=== PATIENT | female | born 1990 | race Caucasian/White ===

== ENCOUNTER 2021-04-08 12:03 | Emergency (ER) | payer MEDICAID, SELFPAY ==
--- NOTE | ~2021-04-08 | XR_ITS ---
EXAMINATION: XR KNEE, LEFT CLINICAL INFORMATION: Knee pain COMPARISON: None TECHNIQUE: Four views of the left knee. FINDINGS: Bones and soft tissues are normal. No fracture or joint effusion. Alignment is anatomic. Joint spaces are well maintained. No abnormal soft tissue calcification. XR/XR knee LT 2V IMPRESSION: Normal left knee.
[2021-04-08 12:05] VITALS: BP 138/87; PULSE 75; RESP 18; TEMP 36.7; O2SAT 99; BMI 25.8
[2021-04-08] MEDS: Acetaminophen 325 MG TABLET 650 MG PO (12:14)
--- NOTE | 2021-04-08 13:25 | ED.LOWEXIN ---
HPI - Extremity Injury (Lower) General Chief Complaint: Extremity Injury, Lower Stated Complaint: l knee inj Time Seen by Provider: 04/08/21 12:31 Source: patient Mode of arrival: ambulatory Limitations: no limitations History of Present Illness HPI Narrative: 30-year-old female presenting to the ED with complaints of left knee pain that started yesterday. She reports that her daughter is currently in the Behavioral Health Pod of [facility] at this time for Behavioral issues and last night when they were in the waiting room of [facility] her child try to run therefore she grabbed her child and tried to restrain her and her child kicked her in her left knee felt like it went out she is unsure actually how it went but since then she has been having severe pain on the anterior and posterior aspect of the knee. She denies head injury or loss of consciousness or being on any blood thinners or any other injury complaints or concerns at this time. complaint: knee injury Onset (ago): day(s) (Since last night) Injury: Left: knee Type of Injury: unknown Place: other (While at [facility] with her child) Severity: moderate Relieving factors: nothing Exacerbating factors: weight bearing, movement and palpation Context: direct blow Associated symptoms: swelling and ambulatory Other symptoms: none Treatments prior to arrival: cold therapy and other (And Tylenol on mild symptomatic relief) Related Data Previous Rx's Medication Instructions Recorded ibuprofen 800 mg tablet 800 mg PO Q8H PRN #14 tab 04/08/21 lidocaine HCl 4 % topical cream 1 appl TOPICAL BID PRN #120 g 04/08/21 (Aspercreme (lidocaine HCl)) oxycodone-acetaminophen 5 mg-325 1 tab PO Q6H PRN #10 tab 04/08/21 mg tablet (Percocet) Allergies Allergy/AdvReac Type Severity Reaction Status Date / Time No Known Allergies Allergy Verified 04/08/21 13:26 Review of Systems Review of Systems: Constitutional : No Weight loss, No Fever, No Chills, No Night Sweats, No Fatigue, No Malaise ENT/Mouth : No Hearing loss, No Ear Pain, No Nasal Congestion, No Sinus Pain, No Hoarseness, No sore throat, No Rhinorrhea, No Swallowing Difficulty Eyes: No Eye Pain, No Swelling, No Redness, No Foreign Body, No Discharge, No Vision Changes Cardiovascular : No Chest Pain, No SOB, No Dyspnea on Exertion, No Orthopnea, No Edema, No Palpitations Respiratory : No Cough, No Sputum, No Wheezing, No Smoke Exposure, No Dyspnea Gastrointestinal : No Nausea, No Vomiting, No Diarrhea, No Constipation, No abdominal Pain, No Hematochezia, No Melena Genitourinary : no irregular bleeding, No Dysuria, No Urinary Frequency, No Hematuria, No Urinary Incontinence, No Urgency, No Flank Pain, No Urinary Flow Changes, No Hesitancy Musculoskeletal : Positive left knee joint pain, No Myalgias, No Joint Swelling Skin : No Skin Lesions, No rash Neuro : No Weakness, No Numbness, No Paresthesias, No Loss of Consciousness, No Dizziness, No Headache Psych : No Anxiety/Panic, No Depression, No SI/HI/AH/VH, No Social Issues, Heme/Lymph: No Bruising, No Bleeding,No Lymphadenopathy Endocrine : No Polyuria, No Polydipsia, No Temperature Intolerance Yes all other systems are reviewed and are negative [facility] Past Medical History Attestation statement: The following information was validated with the patient. Medical History No known health problems Social History Social History Advance Directives: No Advance Directives Information Provided: No Patient : No Physical Exam Vital Signs: Vital Signs: Last Vital Signs Temp 98.1 F 04/08/21 12:05 Pulse 75 04/08/21 12:05 Resp 18 04/08/21 12:05 BP 138/87 04/08/21 12:05 Pulse Ox 99 04/08/21 12:05 Body Mass Index 25.8 vital signs have been reviewed as normal and appeared to be correct. Blood pressure normal Heart rate normal. Respiration rate normal. Temperature normal. Oxygen saturation normal. Appearance: Alert. Oriented X3. No acute distress. Head: Normal external exam. Normocephalic. Atraumatic. Eyes: PERRLA. EOMI. Conjunctiva and sclera normal. Eyelids normal. ENT: Pharynx normal. Uvula midline. Moist mucous membranes. Neck: Normal inspection. Neck supple. FROM. CVS: Normal heart rate and rhythm. Respiratory: No respiratory distress. Painless inspiration. Skin: Skin warm and dry. Normal skin color. Normal skin turgor. No rashes/lesions/lacerations noted. Extremities: Patient with signs of patient to left knee diffusely on anterior and posterior aspect no point tenderness is noted. No obvious deformities are noted. Patient has full range of motion although she reports pain with full extension and keeps her knee and flexion aspect and reports it feels mildly better that way. No obvious ligamentous or tendon injury is noted. Otherwise all other extremities exhibit normal range of motion nd nontender. Neuro: Oriented X 3. No motor deficit. No sensory deficit. Reflexes normal. Normal steady gait. No focal neuro deficits noted. Vascular: + radial pulses/+ 2 distal pedal pulses/+2 dorsalis pedis b/l. Normal cap refill. No cyanosis noted to upper extremity nails and lower extremity toes nails. Course Course Course Narrative: 30-year-old female presenting to the ED with complaints of left knee pain that started yesterday. She reports that her daughter is currently in the Behavioral Health Pod of [facility] at this time for Behavioral issues and last night when they were in the waiting room of [facility] her child try to run therefore she grabbed her child and tried to restrain her and her child kicked her in her left knee felt like it went out she is unsure actually how it went but since then she has been having severe pain on the anterior and posterior aspect of the knee. She denies head injury or loss of consciousness or being on any blood thinners or any other injury complaints or concerns at this time. X-ray obtained and negative for any acute processes. We will place an Tian wrap treat symptomatic and instruct to follow up with Orthopedics in 2-3 weeks if symptoms persist and to return if any new or worsening symptoms to follow up with primary care provider. Patient understands agrees with this plan. MDM - Extremity Injury (Lower) Medical Records Attestation: I reviewed the patient's medical records. Imaging Data Left knee x-ray: Attestation: I personally reviewed and interpreted this imaging study as follows: Radiologist's impression: FINDINGS: Bones and soft tissues are normal. No fracture or joint effusion. Alignment is anatomic. Joint spaces are well maintained. No abnormal soft tissue calcification.? XR/XR knee LT 2V IMPRESSION: Normal left knee. Procedures Orthopedic Splinting/Casting Injury #1: Side: left Lower Extremity Injury Location: knee Lower Extremity Immobilizer: knee immobilizer Discharge Plan Discharge Clinical Impression: Left knee sprain Patient Disposition: Home, Self-Care Instructions: Knee Sprain (ED), Knee Immobilizer (ED) Prescriptions: New lidocaine HCl [Aspercreme (lidocaine HCl)] 4 % cream 1 appl topical BID PRN (Reason: pain) Qty: 120 RF: 0 ibuprofen 800 mg tablet 800 mg PO Q8H PRN (Reason: pain) Qty: 14 RF: 0 oxycodone-acetaminophen [Percocet] 5-325 mg tablet 1 tab PO Q6H PRN (Reason: pain) Qty: 10 RF: 0 Referrals: Dora Luz MD [Physician] - 2 weeks (Make an appointment if symptoms persist) Stand Alone Forms: Work/School Release Print Language: Maori
== END 2021-04-08 14:09 | disposition home or self-care (01) ==
PROVIDERS: Emergency Provider Emergency Medicine
DX: S83.92XA Sprain of unspecified site of left knee, initial encounter (principal); W50.0XXA Accidental hit or strike by another person, initial encounter; Y93.9 Activity, unspecified; Y92.238 Other place in hospital as the place of occurrence of the external cause; Y99.9 Unspecified external cause status
CPT/HCPCS: 73560; 99283

== ENCOUNTER 2021-05-05 11:36 | Emergency (ER) | payer MEDICAID, SELFPAY ==
[2021-05-05 11:57] VITALS: BP 110/76; PULSE 60; RESP 16; TEMP 36.8; O2SAT 98; BMI 22.8
[2021-05-05 12:54] LABS: COVID-19 Test Negative (Negative); IDNOW Serial# 9DD0AD1C
--- NOTE | 2021-05-05 13:13 | ED_ITS ---
HPI - Headache General Chief Complaint: Headache Stated Complaint: Covid symptoms Time Seen by Provider: 05/05/21 12:29 Source: patient and family Mode of arrival: ambulatory Limitations: no limitations History of Present Illness HPI Narrative: 31-year-old female here with complaints of headache for few days. Found out today that daughters COVID positive. Daughter is currently hospitalized at [facility] but the patient has been visiting her daily. Patient denies any fevers, cough, chills, vomiting, diarrhea. Related Data Previous Rx's Medication Instructions Recorded ibuprofen 800 mg tablet 800 mg PO Q8H PRN #14 tab 04/08/21 lidocaine HCl 4 % topical cream 1 appl TOPICAL BID PRN #120 g 04/08/21 (Aspercreme (lidocaine HCl)) oxycodone-acetaminophen 5 mg-325 1 tab PO Q6H PRN #10 tab 04/08/21 mg tablet (Percocet) Allergies Allergy/AdvReac Type Severity Reaction Status Date / Time No Known Allergies Allergy Verified 05/05/21 11:57 Review of Systems Review of Systems: Yes all other systems are reviewed and are negative Constitutional: Constitutional: Reports no additional constitutional complaints, Denies body ache(s), Denies chills, Denies fever(s), Reports headache(s) and Denies weakness Eyes: Eyes: Reports no additional eye complaints and Denies change in vision ENT: Reports system reviewed and no additional complaints, except as documented, Denies dizziness, Reports headache(s), Denies nasal congestion, Denies nasal discharge and Denies neck pain Cardiovascular: Cardiovascular: Reports no additional cardiovascular complaints, Denies chest pain, Denies leg edema and Denies dyspnea Respiratory: Respiratory: Reports no additional respiratory complaints, Denies cough and Denies dyspnea Gastrointestinal: Gastrointestinal: Reports no additional gastrointestinal complaints, Denies abdominal pain, Denies diarrhea, Denies nausea and Denies vomiting Genitourinary: Genitourinary: Reports no additional female genitourinary complaints and Denies urinary incontinence Musculoskeletal: Musculoskeletal: Reports no additional musculoskeletal complaints, Denies back pain, Denies arthralgias, Denies joint swelling, Denies neck pain, Denies numbness and Denies tingling Integumentary/Breasts: Skin/Breast: Reports system reviewed and no additional complaints, except as docu and Denies rash Neurologic: Reports system reviewed and no additional complaints, except as documented, Denies Abnormal speech present, Denies dizziness, Reports headache(s), Denies numbness, Denies tingling and Denies weakness PMFSH Past Medical History Attestation statement: The following information was validated with the patient. Source: old records reviewed and nursing notes reviewed Medical History No known health problems Social History Social History Advance Directives: No Patient : No Physical Exam Vital Signs: Vital Signs: Last Vital Signs Temp 98.2 F 05/05/21 11:57 Pulse 60 05/05/21 11:57 Resp 16 05/05/21 11:57 BP 110/76 05/05/21 11:57 Pulse Ox 98 05/05/21 11:57 Body Mass Index 22.8 Const: General: cooperative, healthy appearing, comfortable and no acute distress Orientation/consciousness: patient oriented x3 Limitations: no limitations HENMT: Head: Yes normal to inspection Ears: hearing grossly normal bilaterally and TM's normal bilaterally General nose exam: Normal external nose present Face and sinus: Yes normal facial exam Mouth: Normal oral and palatal mucosa present Throat: Yes posterior oropharynx normal, Yes tonsils normal and Yes uvula midline Eyes: General: appearance normal, both eyes and all related structures Pupils: Equal, round and reactive pupils present Neck: Neck: Yes normal visual inspection, Yes full ROM, Yes no lymphadenopathy and Yes no meningeal signs Chest: Chest palpation & inspection: normal inspection of the chest Resp: Effort & Inspection: normal respiratory effort Auscultation: clear to auscultation bilaterally Cardio: Rate: regular rate Rhythm: regular rhythm Peripheral pulses: Peripheral pulses 2+ throughout GI: Inspection: Yes normal to inspection Palpation (GI): Soft to palpation and nontender Auscultation: normal bowel sounds Back/Spine/Pelvis: Thoracic/Lumbar Spine: thoracic and lumbar spine normal to inspection Skin: General skin exam: no rashes or lesions noted Neuro: General: patient oriented x3, no meningeal signs, no focal motor deficits and normal sensation to monofilament Cranial nerves: Yes CN's II-XII intact bilaterally, Yes Equal, round and reactive pupils present, Yes Bilaterally intact EOM present, Yes Nystagmus not present and Yes Normal facial strength present Cognition (Neuro): normal cognition Speech: No Abnormal speech present Gait exam (Neuro): Normal gait present Motor exam (neuro): 5/5 motor strength present throughout Sensory Exam: Normal double simultaneous stimulation for sensation Extrem: General: Yes normal to inspection Course Course Course Narrative: 31-year-old female here with mild headache for few days. Found out today the daughter is COVID positive so came here today looking for a COVID test. Her exam is benign. Vitals are stable. COVID screen is negative. Likely viral. Reviewed worrisome signs and symptoms of when to return to the emergency department. Comfortable discharge home. MDM - Headache Medical Records Attestation: I reviewed the patient's medical records. Lab Data Attestation: I reviewed the patient's lab results. Labs: Lab Results 05/05/21 Range/Units 12:14 COVID-19 ([facility]) Negative (Negative) COVID-19 Clin Com See Note Discharge Plan Discharge Clinical Impression: Acute viral syndrome Patient Disposition: Home, Self-Care Instructions: Viral Syndrome (ED) Additional Instructions: Covid test is negative Motrin or Tylenol for pain or fever Increase fluids, rest Prescriptions: No Action lidocaine HCl [Aspercreme (lidocaine HCl)] 4 % cream 1 appl topical BID PRN (Reason: pain) Qty: 120 RF: 0 ibuprofen 800 mg tablet 800 mg PO Q8H PRN (Reason: pain) Qty: 14 RF: 0 oxycodone-acetaminophen [Percocet] 5-325 mg tablet 1 tab PO Q6H PRN (Reason: pain) Qty: 10 RF: 0 Referrals: Physician,Unknown J [Primary Care Provider] - 2 days Interventions: ED Discharge Assessment Last Done: 05/05/21 13:23 Discharge Date/Time: 05/05/21 13:26
== END 2021-05-05 13:26 | disposition home or self-care (01) ==
PROVIDERS: Emergency Provider Emergency Medicine Emergency Medical Services
DX: B34.9 Viral infection, unspecified (principal); R51.9 Headache, unspecified; Z79.899 Other long term (current) drug therapy; Z20.822 Contact with and (suspected) exposure to COVID-19
CPT/HCPCS: 36415; 87635; 99283

== ENCOUNTER → 2021-05-07 09:49 | Outpatient (BNVA) | payer MEDICAID, SELFPAY | PROVIDERS: PCP Nurse Practitioner Family; Visit Provider Physician Assistant | DX: S83.92XA Sprain of unspecified site of left knee, initial encounter (principal) | CPT/HCPCS: 99202 ==

== ENCOUNTER 2021-06-08 07:07 | Outpatient (REF) | payer MEDICAID, SELFPAY ==
--- NOTE | ~2021-06-08 | XR_ITS ---
EXAMINATION: XR SHOULDER, BILATERAL CLINICAL INFORMATION: Pain in the shoulder. COMPARISON: None TECHNIQUE: 4 views of the right shoulder, 4 views of the left shoulder. FINDINGS: Right Shoulder: The bones, joints and soft tissues are normal. Left Shoulder: The bones, joints and soft tissues are normal. XR/XR shoulder RT min 2V IMPRESSION: Normal x-ray series of the right shoulder and the left shoulder.
--- NOTE | ~2021-06-08 | XR_ITS ---
EXAMINATION: XR SHOULDER, BILATERAL CLINICAL INFORMATION: Pain in the shoulder. COMPARISON: None TECHNIQUE: 4 views of the right shoulder, 4 views of the left shoulder. FINDINGS: Right Shoulder: The bones, joints and soft tissues are normal. Left Shoulder: The bones, joints and soft tissues are normal. XR/XR shoulder LT min 2V IMPRESSION: Normal x-ray series of the right shoulder and the left shoulder.
== END 2021-06-08 07:08 | disposition home or self-care (01) ==
LOC: HO.HOSX 07:07
PROVIDERS: Visit Provider Physician Assistant
DX: M25.512 Pain in left shoulder (principal); M25.511 Pain in right shoulder; G89.29 Other chronic pain
CPT/HCPCS: 73030; 99212

== ENCOUNTER 2022-05-31 16:43 | Emergency (ER) | payer MEDICAID, SELFPAY ==
--- NOTE | ~2022-05-31 | XR_ITS ---
EXAMINATION: XR CHEST CLINICAL INFORMATION: Chest pain COMPARISON: None TECHNIQUE: Frontal view of the chest was obtained. FINDINGS: No significant abnormality is noted involving the heart, lungs, mediastinum, bony thorax or soft tissues. XR/XR chest 1V IMPRESSION: Unremarkable examination.
--- NOTE | ~2022-05-31 | CT_ITS ---
EXAMINATION: CT SOFT TISSUE NECK WITHOUT CONTRAST CLINICAL INFORMATION: Left-sided neck pain. COMPARISON: None TECHNIQUE: Helical imaging was performed in the axial plane with generation of coronal and sagittal reformatted images. This CT examination was performed using dose optimization techniques as appropriate, variously including the following: *Automated exposure control *Adjustment of mA and/or kV according to patient size (this includes techniques or standardized protocols for targeted exams where dose is matched to indication/reason for exam; i.e. extremities or head) *Use of iterative reconstruction technique DLP: 380 mGy-cm FINDINGS: No mass or significant lymphadenopathy. Findings at the neck are normal with no inflammation or fluid collection. Paranasal sinuses and mastoid air cells normally aerated. The nasopharynx, pharynx and hypopharynx structures are normal. Orbital globes and retrobulbar structures and partially visualized intracranial structures are normal. Lung apices normally aerated. Superior mediastinum normal. No osseous abnormality. Small piece of metallic jewelry present over the right superior orbit soft tissues. CT/CT soft tissue neck wo IV con IMPRESSION: Normal CT soft tissue neck.
[2022-05-31 17:36] VITALS: BP 121/81; PULSE 96; RESP 24; TEMP 36.2; O2SAT 100; BMI 22.0
--- NOTE | 2022-05-31 17:43 | ECG_ITS ---
Test Reason : CP Blood Pressure : / mmHG Vent. Rate : 073 BPM Atrial Rate : 073 BPM P-R Int : 132 ms QRS Dur : 096 ms QT Int : 394 ms P-R-T Axes : 068 101 033 degrees QTc Int : 434 ms Normal sinus rhythm with sinus arrhythmia Possible Left atrial enlargement Rightward axis Incomplete right bundle branch block Borderline ECG No previous ECGs available Referred By: Generic ED Physician Electronically Signed By:BHAVNA LOCKETT MD
[2022-05-31 18:01] LABS: MANUAL DIFF FLAG NO
[2022-05-31 18:19] LABS: Anion Gap 17 (12-20); Blood Urea Nitrogen 14 mg/dL (9-16); Calcium 9.9 mg/dL (8.4-10.2); Carbon Dioxide 20 mmol/L (22-29); Chloride 103 mmol/L (96-108); Creatinine Clr Calc Pharmacy 100.2; Estimated Glomerular Filt Rate > 60; Glucose Random 88 mg/dL (60-115); Potassium 3.9 mmol/L (3.3-5.1); Sodium 136 mmol/L (135-145)
[2022-05-31 18:26] LABS: Basophils Absolute Auto 0.1 X10*3/uL (0.0-0.2); Basophils Percent Auto 0.7 % (0-2); Eosinophils Percent Auto 0.5 % (0-4); Hematocrit 40.3 % (37.0-47.0); Hemoglobin 14.4 g/dl (12.0-16.0); Imm Gran Pct Auto 1.2 % (0.0-0.4); Lymphocytes Absolute Auto 2.1 X10*3/uL (1.2-4.9); Lymphocytes Percent Auto 24.7 % (20-40); Mean Corpuscular HGB Conc 35.7 g/dl (31.0-35.0); Mean Corpuscular Hemoglobin 30.8 pg (27.0-33.0); Mean Corpuscular Volume 86.3 fL (80.0-98.0); Mean Platelet Volume 10.1 fL (9.4-12.3); Monocytes Absolute Auto 0.7 X10*3/uL (0.1-1.2); Neutrophils Absolute Auto 5.5 x10*3/uL (2.0-8.3); Neutrophils Percent Auto 64.9 % (45-73); Platelet Count 233 X10*3/uL (160-400); Red Blood Count 4.67 X10*6/uL (4.20-5.50); Red Cell Distribution Width 12.1 % (11.0-16.0); White Blood Count 8.4 X10*3/uL (4.8-10.8)
[2022-05-31 18:31] LABS: Troponin-I High Sensitivity < 3.5 ng/L (<3.5-17.0)
[2022-05-31 19:21] VITALS: BP 110/69; PULSE 58; RESP 20; TEMP 36.4; O2SAT 100
--- NOTE | 2022-05-31 20:59 | ED.CHESTPAIN ---
HPI - Chest Pain General Chief Complaint: Chest Pain Stated Complaint: Pressure from ear to neck/Weakness Time Seen by Provider: 05/31/22 20:51 Source: patient Mode of arrival: ambulatory Limitations: no limitations History of Present Illness HPI narrative: Patient comes to the emergency room complaining of left-sided neck pain that has been going on for several months, patient states that she has been seen by her primary care physician, an ultrasound was done but the pain has been present and causing pressure sensation. Patient denies any shortness of breath or trouble swallowing. Patient complaining of anxiety about her condition, denies any fever chills. Patient states that the pain of her left side of the neck radiates towards her chest. At this time, patient has no chest pain or shortness of breath. Patient admits to using cocaine yesterday. Related Data Previous Rx's Medication Instructions Recorded ibuprofen 800 mg tablet 800 mg PO Q8H PRN pain #14 tabs 04/08/21 lidocaine HCl 4 % topical cream 1 appl topical BID PRN pain #120 04/08/21 (Aspercreme (lidocaine HCl)) grams oxycodone-acetaminophen 5 mg-325 1 tab PO Q6H PRN pain #10 tabs 04/08/21 mg tablet (Percocet) Allergies Allergy/AdvReac Type Severity Reaction Status Date / Time No Known Allergies Allergy Verified 06/08/21 14:15 Review of Systems Review of Systems: Constitutional : No Weight loss, No Fever, No Chills, No Night Sweats, No Fatigue, No Malaise ENT/Mouth : No Hearing loss no nasal congestion, no hoarseness, no sore throat, no difficulty swelling, complaining of left-sided neck pain radiating from the ear towards the left side of the neck towards the chest, complaining of pressure-like sensation. Eyes: No Eye Pain, No Swelling, No Redness, No Foreign Body, No Discharge, No Vision Changes Cardiovascular : No Chest Pain, No SOB, No Dyspnea on Exertion, No Orthopnea, No Edema, No Palpitations Respiratory : No Cough, No Sputum, No Wheezing, No Smoke Exposure, No Dyspnea Gastrointestinal : No Nausea, No Vomiting, No Diarrhea, No Constipation, No abdominal Pain, No Hematochezia, No Melena Genitourinary : no irregular bleeding, No Dysuria, No Urinary Frequency, No Hematuria, No Urinary Incontinence, No Urgency, No Flank Pain, No Urinary Flow Changes, No Hesitancy Musculoskeletal : No joint pain, No Myalgias, No Joint Swelling Skin : No Skin Lesions, No rash Neuro : No Weakness, No Numbness, No Paresthesias, No Loss of Consciousness, No Dizziness, No Headache Psych : No Anxiety/Panic, No Depression, No SI/HI/AH/VH, No Social Issues, Heme/Lymph: No Bruising, No Bleeding,No Lymphadenopathy Endocrine : No Polyuria, No Polydipsia, No Temperature Intolerance [facility] Past Medical History Medical History (Updated 05/31/22 @ 22:56 by Yulisa Flynn MD) Chronic periscapular pain, bilateral No known health problems Radiculopathy with lower extremity symptoms Substance abuse Social History Social History Smoked in Last 30 Days: Yes Use of substances other than those prescribed or required for medical reasons: Yes Substance Use Type: Crack/Cocaine and Marijuana Substance Use Frequency: Occasionally Last Used Substance: Days (ago) Any prior treatment program specific to substance use: No Advance Directives: No Advance Directives Information Provided: No Patient : No Current occupational status: unemployed Current occupation: rt handed Physical Exam Vital Signs: Vital Signs: Last Vital Signs Temp 97.6 F 05/31/22 19:21 Pulse 80 05/31/22 21:38 Resp 20 05/31/22 19:21 BP 130/86 05/31/22 21:38 Pulse Ox 100 05/31/22 19:21 O2 Del Method 05/31/22 19:21 BMI result Body Mass Index 22.0 Const: Other: Appearance: Alert. Oriented X3. No acute distress. Eyes: Pupils equal, round and reactive to light. ENT: Pharynx normal. There are no palpable lymph nodes, no palpable or visualized swelling on the left side of the neck Neck: Normal inspection. Neck supple. No lymph nodes noted. No crepitus CVS: Normal heart rate and rhythm. Pulses normal. Normal S1 and S2 Respiratory: No respiratory distress. Breath sounds normal. No Wheezing. No rales Abdomen: Soft and nontender. No rigidity. No distention. Skin: Skin warm and dry. Normal skin color. Normal skin turgor. Extremities: No lower extremity edema. No Lacerations. No Rash Neuro: Oriented X 3. No motor deficit. No sensory deficit. Moving all extremities. No slurred speech. CN 2 through 12 grossly intact Psych: calm, cooperative, normal affect Course Course Course Narrative: I discussed the physical exam with the patient, there were no palpable or visualized swelling or lymph nodes. Patient is admitted that there is something on the left side of her neck. I offered her CT scan. Patient agrees with plan. all Of patient's labs are at baseline I discussed the CT scan with the patient, no acute findings. Patient has history of POTS, patient's blood pressure remained stable. Medical Decision Making Medical Decision Making Differential Diagnoses: Differential diagnosis (Anxiety, chronic lymphadenitis, abscess) Lab Attestation: I reviewed the patient's lab results. (No acute abnormalities) Independent interpretation of EKG, rhythm strip, radiology study: Independent interp EKG,rhythm strip, radiology study I performed an independent interpretation of the: EKG My interpretation is sinus rhythm, heart rate 73, no ST segment depression or elevation, nonspecific T-wave inversion in lead 3, QTC 434 Discussion of test interpretation with radiology: Discussion of test interpretation with radiology (I visualized the CT scan, my interpretation is no acute findings.) CT report: FINDINGS: No mass or significant lymphadenopathy. Findings at the neck are normal with no inflammation or fluid collection. Paranasal sinuses and mastoid air cells normally aerated. The nasopharynx, pharynx and hypopharynx structures are normal. Orbital globes and retrobulbar structures and partially visualized intracranial structures are normal. Lung apices normally aerated. Superior mediastinum normal. No osseous abnormality. Small piece of metallic jewelry present over the right superior orbit soft tissues. CT/CT soft tissue neck wo IV con IMPRESSION: Normal CT soft tissue neck. Prescription medication was considered but ultimately not given after discussion with patient/family. (e.g., pain medication, antiviral, antibiotic): Prescriptions considered but not given I considered prescription management with: Pain Medication (Ibuprofen or Tylenol were considered. However, patient has chronic symptoms on the left side of the neck, already addressed by the primary care physician, CT scan negative, there is likely anxiety component) Chronic conditions affecting care (e.g., diabetes, HTN): Chronic conditions affecting care (e.g., diabetes, HTN) (Kyle syndrome, patient is at baseline) Discharge Plan Discharge Clinical Impression: Neck pain on left side Patient Disposition: Home, Self-Care Instructions: Chronic Neck Pain (DC) Additional Instructions: Please follow-up with your primary care physician tomorrow. If you have any worsening or new symptoms, please return to the emergency room or call 911 Prescriptions: No Action lidocaine HCl [Aspercreme (lidocaine HCl)] 4 % cream 1 appl topical BID PRN (Reason: pain) Qty: 120 0RF ibuprofen 800 mg tablet 800 mg PO Q8H PRN (Reason: pain) Qty: 14 0RF oxycodone-acetaminophen [Percocet] 5-325 mg tablet 1 tab PO Q6H PRN (Reason: pain) Qty: 10 0RF
[2022-05-31 21:38] VITALS: BP 105/67; BP 120/79; BP 130/86; PULSE 46; PULSE 59; PULSE 80
--- NOTE | 2022-05-31 23:08 | PC.NURSE ---
Discharge instructions reviewed with pt. Pt verbalizes understanding.
== END 2022-05-31 23:08 | disposition home or self-care (01) ==
PROVIDERS: Emergency Provider Emergency Medicine
DX: R07.89 Other chest pain (principal); M54.2 Cervicalgia; F14.10 Cocaine abuse, uncomplicated; F12.10 Cannabis abuse, uncomplicated; Z79.899 Other long term (current) drug therapy
CPT/HCPCS: 36415; 70490; 71045; 80048; 84484; 85025; 93005; 99284; 99285

== ENCOUNTER 2022-06-06 17:19 | Emergency (ER) | payer MEDICAID, SELFPAY ==
--- NOTE | ~2022-06-06 | XR_ITS ---
EXAMINATION: XR CHEST, 2 VIEWS CLINICAL INFORMATION: chest pain/abd pain COMPARISON: 05/31/2022 TECHNIQUE: PA and lateral views of the chest were obtained. FINDINGS: Lungs are clear. No consolidation, pneumothorax, or pleural effusion. Cardiac and mediastinal contours are normal. Pulmonary vasculature is unremarkable. Trachea is midline. Osseous structures are unremarkable. XR/XR chest 2V IMPRESSION: Normal chest radiographs.
[2022-06-06 18:09] VITALS: BP 141/90; PULSE 72; RESP 18; TEMP 36.5; O2SAT 100; BMI 22.7
--- NOTE | 2022-06-06 18:09 | ED.GENADULT ---
HPI - General Adult General Chief complaint: General Medical <HELEN Arreola - Last Filed: 06/06/22 18:14> Stated complaint: Neck Pain/ Multiple complaints <HELEN Arreola - Last Filed: 06/06/22 18:14> Time Seen by Provider: 06/06/22 19:57 <HELEN Arreola - Last Filed: 06/06/22 18:14> Source: patient <Cesar Kate MD - Last Filed: 06/06/22 22:28> Mode of arrival: ambulatory <Cesar Kate MD - Last Filed: 06/06/22 22:28> Limitations: no limitations <Cesar Kate MD - Last Filed: 06/06/22 22:28> History of Present Illness HPI narrative: 32yoF presenting ot the ED multiple complaints headaches, eye pain, left sided ear pain, left neck pain, left chest pain radiating to her left arm, left abdominal pain and multiple other complaints.? Reports that she was seen by provider yesterday and everything was negative. Patient does have a history of anxiety and insomnia was seen here on 05/31 lab work was normal complaining of mostly muscular pain upper back poor sleep tearful crying because of anxiety <Cesar Kate MD - Last Filed: 06/06/22 22:28> Related Data Home medications: Previous Rx's Medication Instructions Recorded ibuprofen 800 mg tablet 800 mg PO Q8H PRN pain #14 tabs 04/08/21 lidocaine HCl 4 % topical cream 1 appl topical BID PRN pain #120 04/08/21 (Aspercreme (lidocaine HCl)) grams oxycodone-acetaminophen 5 mg-325 1 tab PO Q6H PRN pain #10 tabs 04/08/21 mg tablet (Percocet) lorazepam 1 mg tablet (Ativan) 1 mg PO BEDTIME PRN anxiety #14 06/06/22 tabs tramadol 50 mg tablet 50 mg PO Q6H PRN pain #20 tabs 06/06/22 <HELEN Arreola - Last Filed: 06/06/22 18:14> Allergies/adverse reactions: Allergies Allergy/AdvReac Type Severity Reaction Status Date / Time No Known Allergies Allergy Verified 06/08/21 14:15 <HELEN Arreola - Last Filed: 06/06/22 18:14> Review of Systems Review of Systems: Yes all other systems are reviewed and are negative <Cesar Kate MD - Last Filed: 06/06/22 22:28> [facility] Past Medical History Medical History: Medical History Chronic periscapular pain, bilateral No known health problems Radiculopathy with lower extremity symptoms Substance abuse <HELEN Arreola - Last Filed: 06/06/22 18:14> Social History Social History: Social History Substance Use Type: Crack/Cocaine and Marijuana Advance Directives: No Advance Directives Information Provided: No Current occupational status: unemployed Current occupation: rt handed <HELEN Arreola - Last Filed: 06/06/22 18:14> Physical Exam ED Vital Signs: Vital Signs - 24 hr 06/06/22 18:09 Temperature 97.7 F Pulse Rate 72 Respiratory Rate 18 Blood Pressure 141/90 H Pulse Oximetry 100 Oxygen Delivery Method Room Air BMI result Body Mass Index 22.7 <HELEN Arreola - Last Filed: 06/06/22 18:14> Vital Signs - 24 hr 06/06/22 18:09 Temperature 97.7 F Pulse Rate 72 Respiratory Rate 18 Blood Pressure 141/90 H Pulse Oximetry 100 Oxygen Delivery Method Room Air BMI result Body Mass Index 22.7 <Cesar Kate MD - Last Filed: 06/06/22 22:28> Appearance: Alert. Oriented X3. No acute distress. anxious Eyes: PERRLA, No Nystagmus ENT: Pharynx normal. Oral Mucosa moist Neck: Normal inspection. Neck supple. Diffuse tenderness of bilateral neck muscles no lymphadenopathy CVS: Normal heart rate and rhythm. Pulses normal. Respiratory: No respiratory distress. Equal air entry bilateral, no wheezing/rales/rhonchi Abdomen: Soft and nontender. Bowel sounds are present, no mass palpable, no CVA tenderness Skin: Skin warm and dry. Normal skin color. Normal skin turgor. back: Diffuse tenderness bilateral rhomboids area with trigger points Extremities: No lower extremity edema. No calf tenderness Neuro: Oriented X 3. No motor deficit. No sensory deficit.No cerebellar signs , cranial nerves II-XII intact <Cesar Kate MD - Last Filed: 06/06/22 22:28> Course Course Course Narrative: [id number]:10pm - 32yoF presenting ot the ED c multiple complaints headaches, eye pain, left sided ear pain, left neck pain, left chest pain radiating to her left arm, left abdominal pain and multiple other complaints. Reports that she was seen by provider yesterday and everything was negative. Plan: Labs, CXR, EKG ordered at this time. Patient is stable. Vital signs are stable. Patient will be sent back to the waiting room for further evaluation treatment to the main ER. <HELEN Arreola - Last Filed: 06/06/22 18:14> Medications Administered Discontinued Medications Generic Name Dose Route Start Last Admin Trade Name Freq PRN Reason Stop Dose Admin Tramadol HCl 50 mg 06/06/22 20:16 06/06/22 20:27 Tramadol Hcl 50 Mg Tablet PO 06/06/22 20:17 50 mg ONCE ONE Administration <HELEN Arreola - Last Filed: 06/06/22 18:14> Medications Administered Discontinued Medications Generic Name Dose Route Start Last Admin Trade Name Freq PRN Reason Stop Dose Admin Tramadol HCl 50 mg 06/06/22 20:16 06/06/22 20:27 Tramadol Hcl 50 Mg Tablet PO 06/06/22 20:17 50 mg ONCE ONE Administration <Cesar Kate MD - Last Filed: 06/06/22 22:28> Medical Decision Making Medical Decision Making [facility] Narrative: Patient's symptoms of fibromyalgia anxiety multiple complaints recently had a CT scan was of the neck negative lab workup is negative Monospot is negative patient was advised to follow with PCP and 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 <Cesar Kate MD - Last Filed: 06/06/22 22:28> Result Diagrams: : 06/06/22 18:26 06/06/22 18:26 <HELEN Arreola - Last Filed: 06/06/22 18:14> Labs: Lab Results 06/06/22 06/06/22 06/06/22 Range/Units 18:26 18:26 18:26 WBC 8.4 (4.8-10.8) X10*3/uL RBC 4.13 L (4.20-5.50) X10*6/uL Hgb 13.0 (12.0-16.0) g/dl Hct 37.3 (37.0-47.0) % MCV 90.3 (80.0-98.0) fL MCH 31.5 (27.0-33.0) pg MCHC 34.9 (31.0-35.0) g/dl RDW 12.5 (11.0-16.0) % Plt Count 175 (160-400) X10*3/uL MPV 10.2 (9.4-12.3) fL Immature Gran % (Auto) 0.2 (0.0-0.4) % Neut % (Auto) 65.2 (45-73) % Lymph % (Auto) 26.5 (20-40) % [place] % (Auto) 6.4 (2-11) % Eos % (Auto) 1.0 (0-4) % Baso % (Auto) 0.7 (0-2) % Lymph # (Auto) 2.2 (1.2-4.9) X10*3/uL [place] # (Auto) 0.5 (0.1-1.2) X10*3/uL Eos # (Auto) 0.1 (0.0-0.4) X10*3/uL Baso # (Auto) 0.1 (0.0-0.2) X10*3/uL Abs Immat Gran (auto) 0.02 (0.00-0.03) X10*3/uL Absolute Neuts (auto) 5.5 (2.0-8.3) x10*3/uL Absolute Nucleated RBC 0.000 (0.0-0.012) X10*3/uL Nucleated RBC % (auto) 0.0 (0.0-0.2) /100WBC PT 13.9 H (10.0-13.1) SEC INR 1.2 H (0.9-1.1) Sodium 137 (135-145) mmol/L Potassium 3.7 (3.3-5.1) mmol/L Chloride 107 (96-108) mmol/L Carbon Dioxide 23 (22-29) mmol/L Anion Gap 11 L (12-20) BUN 8 L (9-16) mg/dL Creatinine 0.70 (0.5-1.4) mg/dL Estim Creat Clear Calc 113.2 Estimated GFR > 60 Random Glucose 83 (60-115) mg/dL Calcium 9.1 D (8.4-10.2) mg/dL Magnesium 2.0 (1.6-2.6) mg/dL Total Bilirubin 1.1 H (0.0-1.0) mg/dL AST 16 (5-31) U/L ALT 8 (0-31) U/L Alkaline Phosphatase 52 (39-117) U/L Troponin I High Sens (<3.5-17.0) ng/L Total Protein 6.5 (6.5-8.0) g/dL Albumin 4.4 (3.5-5.0) g/dL Lipase 21 (8-78) U/L Monoscreen (Negative) Influenza Type A (PCR) (Negative) Influenza Type B (PCR) (Negative) RSV RNA Qual (PCR) (Negative) SARS-CoV-2 RNA (RT-PCR) (Negative) 06/06/22 06/06/22 06/06/22 Range/Units 18:26 18:26 18:26 WBC (4.8-10.8) X10*3/uL RBC (4.20-5.50) X10*6/uL Hgb (12.0-16.0) g/dl Hct (37.0-47.0) % MCV (80.0-98.0) fL MCH (27.0-33.0) pg MCHC (31.0-35.0) g/dl RDW (11.0-16.0) % Plt Count (160-400) X10*3/uL MPV (9.4-12.3) fL Immature Gran % (Auto) (0.0-0.4) % Neut % (Auto) (45-73) % Lymph % (Auto) (20-40) % [place] % (Auto) (2-11) % Eos % (Auto) (0-4) % Baso % (Auto) (0-2) % Lymph # (Auto) (1.2-4.9) X10*3/uL [place] # (Auto) (0.1-1.2) X10*3/uL Eos # (Auto) (0.0-0.4) X10*3/uL Baso # (Auto) (0.0-0.2) X10*3/uL Abs Immat Gran (auto) (0.00-0.03) X10*3/uL Absolute Neuts (auto) (2.0-8.3) x10*3/uL Absolute Nucleated RBC (0.0-0.012) X10*3/uL Nucleated RBC % (auto) (0.0-0.2) /100WBC PT (10.0-13.1) SEC INR (0.9-1.1) Sodium (135-145) mmol/L Potassium (3.3-5.1) mmol/L Chloride (96-108) mmol/L Carbon Dioxide (22-29) mmol/L Anion Gap (12-20) BUN (9-16) mg/dL Creatinine (0.5-1.4) mg/dL Estim Creat Clear Calc Estimated GFR Random Glucose (60-115) mg/dL Calcium (8.4-10.2) mg/dL Magnesium (1.6-2.6) mg/dL Total Bilirubin (0.0-1.0) mg/dL AST (5-31) U/L ALT (0-31) U/L Alkaline Phosphatase (39-117) U/L Troponin I High Sens < 3.5 (<3.5-17.0) ng/L Total Protein (6.5-8.0) g/dL Albumin (3.5-5.0) g/dL Lipase (8-78) U/L Monoscreen Negative (Negative) Influenza Type A (PCR) NEGATIVE (Negative) Influenza Type B (PCR) NEGATIVE (Negative) RSV RNA Qual (PCR) NEGATIVE (Negative) SARS-CoV-2 RNA (RT-PCR) NEGATIVE (Negative) <HELEN Arreola - Last Filed: 06/06/22 18:14> Lab Results 06/06/22 06/06/22 06/06/22 Range/Units 18:26 18:26 18:26 WBC 8.4 (4.8-10.8) X10*3/uL RBC 4.13 L (4.20-5.50) X10*6/uL Hgb 13.0 (12.0-16.0) g/dl Hct 37.3 (37.0-47.0) % MCV 90.3 (80.0-98.0) fL MCH 31.5 (27.0-33.0) pg MCHC 34.9 (31.0-35.0) g/dl RDW 12.5 (11.0-16.0) % Plt Count 175 (160-400) X10*3/uL MPV 10.2 (9.4-12.3) fL Immature Gran % (Auto) 0.2 (0.0-0.4) % Neut % (Auto) 65.2 (45-73) % Lymph % (Auto) 26.5 (20-40) % [place] % (Auto) 6.4 (2-11) % Eos % (Auto) 1.0 (0-4) % Baso % (Auto) 0.7 (0-2) % Lymph # (Auto) 2.2 (1.2-4.9) X10*3/uL [place] # (Auto) 0.5 (0.1-1.2) X10*3/uL Eos # (Auto) 0.1 (0.0-0.4) X10*3/uL Baso # (Auto) 0.1 (0.0-0.2) X10*3/uL Abs Immat Gran (auto) 0.02 (0.00-0.03) X10*3/uL Absolute Neuts (auto) 5.5 (2.0-8.3) x10*3/uL Absolute Nucleated RBC 0.000 (0.0-0.012) X10*3/uL Nucleated RBC % (auto) 0.0 (0.0-0.2) /100WBC PT 13.9 H (10.0-13.1) SEC INR 1.2 H (0.9-1.1) Sodium 137 (135-145) mmol/L Potassium 3.7 (3.3-5.1) mmol/L Chloride 107 (96-108) mmol/L Carbon Dioxide 23 (22-29) mmol/L Anion Gap 11 L (12-20) BUN 8 L (9-16) mg/dL Creatinine 0.70 (0.5-1.4) mg/dL Estim Creat Clear Calc 113.2 Estimated GFR > 60 Random Glucose 83 (60-115) mg/dL Calcium 9.1 D (8.4-10.2) mg/dL Magnesium 2.0 (1.6-2.6) mg/dL Total Bilirubin 1.1 H (0.0-1.0) mg/dL AST 16 (5-31) U/L ALT 8 (0-31) U/L Alkaline Phosphatase 52 (39-117) U/L Troponin I High Sens (<3.5-17.0) ng/L Total Protein 6.5 (6.5-8.0) g/dL Albumin 4.4 (3.5-5.0) g/dL Lipase 21 (8-78) U/L Monoscreen (Negative) Influenza Type A (PCR) (Negative) Influenza Type B (PCR) (Negative) RSV RNA Qual (PCR) (Negative) SARS-CoV-2 RNA (RT-PCR) (Negative) 06/06/22 06/06/22 06/06/22 Range/Units 18:26 18:26 18:26 WBC (4.8-10.8) X10*3/uL RBC (4.20-5.50) X10*6/uL Hgb (12.0-16.0) g/dl Hct (37.0-47.0) % MCV (80.0-98.0) fL MCH (27.0-33.0) pg MCHC (31.0-35.0) g/dl RDW (11.0-16.0) % Plt Count (160-400) X10*3/uL MPV (9.4-12.3) fL Immature Gran % (Auto) (0.0-0.4) % Neut % (Auto) (45-73) % Lymph % (Auto) (20-40) % [place] % (Auto) (2-11) % Eos % (Auto) (0-4) % Baso % (Auto) (0-2) % Lymph # (Auto) (1.2-4.9) X10*3/uL [place] # (Auto) (0.1-1.2) X10*3/uL Eos # (Auto) (0.0-0.4) X10*3/uL Baso # (Auto) (0.0-0.2) X10*3/uL Abs Immat Gran (auto) (0.00-0.03) X10*3/uL Absolute Neuts (auto) (2.0-8.3) x10*3/uL Absolute Nucleated RBC (0.0-0.012) X10*3/uL Nucleated RBC % (auto) (0.0-0.2) /100WBC PT (10.0-13.1) SEC INR (0.9-1.1) Sodium (135-145) mmol/L Potassium (3.3-5.1) mmol/L Chloride (96-108) mmol/L Carbon Dioxide (22-29) mmol/L Anion Gap (12-20) BUN (9-16) mg/dL Creatinine (0.5-1.4) mg/dL Estim Creat Clear Calc Estimated GFR Random Glucose (60-115) mg/dL Calcium (8.4-10.2) mg/dL Magnesium (1.6-2.6) mg/dL Total Bilirubin (0.0-1.0) mg/dL AST (5-31) U/L ALT (0-31) U/L Alkaline Phosphatase (39-117) U/L Troponin I High Sens < 3.5 (<3.5-17.0) ng/L Total Protein (6.5-8.0) g/dL Albumin (3.5-5.0) g/dL Lipase (8-78) U/L Monoscreen Negative (Negative) Influenza Type A (PCR) NEGATIVE (Negative) Influenza Type B (PCR) NEGATIVE (Negative) RSV RNA Qual (PCR) NEGATIVE (Negative) SARS-CoV-2 RNA (RT-PCR) NEGATIVE (Negative) <Cesar Kate MD - Last Filed: 06/06/22 22:28> Discharge Plan Discharge Clinical Impression: Fibromyalgia, Anxiety <HELEN Arreola - Last Filed: 06/06/22 18:14> Patient Disposition: Home, Self-Care <HELEN Arreola - Last Filed: 06/06/22 18:14> Instructions: Fibromyalgia (ED), Anxiety (ED) <HELEN Arreola - Last Filed: 06/06/22 18:14> Additional Instructions: Take medication as prescribed and follow with PCP <HELEN Arreola - Last Filed: 06/06/22 18:14> Prescriptions: New lorazepam [Ativan] 1 mg tablet 1 mg PO BEDTIME PRN (Reason: anxiety) Qty: 14 0RF tramadol 50 mg tablet 50 mg PO Q6H PRN (Reason: pain) Qty: 20 0RF No Action lidocaine HCl [Aspercreme (lidocaine HCl)] 4 % cream 1 appl topical BID PRN (Reason: pain) Qty: 120 0RF ibuprofen 800 mg tablet 800 mg PO Q8H PRN (Reason: pain) Qty: 14 0RF oxycodone-acetaminophen [Percocet] 5-325 mg tablet 1 tab PO Q6H PRN (Reason: pain) Qty: 10 0RF <HELEN Arreola - Last Filed: 06/06/22 18:14> Interventions: ED Discharge Assessment Last Done: 06/06/22 20:37 <HELEN Arreola - Last Filed: 06/06/22 18:14> Discharge Date/Time: 06/06/22 20:37 <HELEN Arreola - Last Filed: 06/06/22 18:14>
--- NOTE | 2022-06-06 18:10 | ECG_ITS ---
Test Reason : ABDOMINAL PAIN Blood Pressure : / mmHG Vent. Rate : 062 BPM Atrial Rate : 062 BPM P-R Int : 142 ms QRS Dur : 094 ms QT Int : 416 ms P-R-T Axes : 055 089 020 degrees QTc Int : 422 ms Normal sinus rhythm Incomplete right bundle branch block Borderline ECG When compared with ECG of 31-MAY-2022 17:45, No significant change was found Referred By: Irina Dodd Electronically Signed By:RONALDO PRIETO
[2022-06-06 18:35] LABS: MANUAL DIFF FLAG NO
[2022-06-06 18:38] LABS: Basophils Absolute Auto 0.1 X10*3/uL (0.0-0.2); Basophils Percent Auto 0.7 % (0-2); Eosinophils Absolute Auto 0.1 X10*3/uL (0.0-0.4); Hematocrit 37.3 % (37.0-47.0); Imm Gran Abs Auto 0.02 X10*3/uL (0.00-0.03); Imm Gran Pct Auto 0.2 % (0.0-0.4); Lymphocytes Absolute Auto 2.2 X10*3/uL (1.2-4.9); Lymphocytes Percent Auto 26.5 % (20-40); Mean Corpuscular HGB Conc 34.9 g/dl (31.0-35.0); Mean Corpuscular Hemoglobin 31.5 pg (27.0-33.0); Mean Corpuscular Volume 90.3 fL (80.0-98.0); Mean Platelet Volume 10.2 fL (9.4-12.3); Monocytes Absolute Auto 0.5 X10*3/uL (0.1-1.2); Monocytes Percent Auto 6.4 % (2-11); Neutrophils Absolute Auto 5.5 x10*3/uL (2.0-8.3); Neutrophils Percent Auto 65.2 % (45-73); Platelet Count 175 X10*3/uL (160-400); Red Blood Count 4.13 X10*6/uL (4.20-5.50); Red Cell Distribution Width 12.5 % (11.0-16.0); White Blood Count 8.4 X10*3/uL (4.8-10.8)
[2022-06-06 18:44] LABS: INTERNATIONAL NORM RATIO 1.2 (0.9-1.1); Prothrombin Time 13.9 SEC (10.0-13.1)
[2022-06-06 18:59] LABS: Alanine Aminotransferase 8 U/L (0-31); Albumin Level 4.4 g/dL (3.5-5.0); Alkaline Phosphatase 52 U/L (39-117); Anion Gap 11 (12-20); Aspartate Amino Transferase 16 U/L (5-31); Bilirubin Total 1.1 mg/dL (0.0-1.0); Blood Urea Nitrogen 8 mg/dL (9-16); Calcium 9.1 mg/dL (8.4-10.2); Carbon Dioxide 23 mmol/L (22-29); Chloride 107 mmol/L (96-108); Creatinine Clr Calc Pharmacy 113.2; Estimated Glomerular Filt Rate > 60; Glucose Random 83 mg/dL (60-115); Lipase 21 U/L (8-78); Potassium 3.7 mmol/L (3.3-5.1); Sodium 137 mmol/L (135-145); Total Protein 6.5 g/dL (6.5-8.0)
[2022-06-06 19:05] LABS: Troponin-I High Sensitivity < 3.5 ng/L (<3.5-17.0)
[2022-06-06 19:09] LABS: Monotest Negative (Negative)
[2022-06-06 19:15] LABS: Influenza A PCR NEGATIVE (Negative); Influenza B PCR NEGATIVE (Negative); Resp Syncy Virus RNA Qual PCR NEGATIVE (Negative); SARS COV2 PCR INHOUSE NEGATIVE (Negative)
[2022-06-06] MEDS: traMADoL HCL 50 MG TABLET PO (20:27)
== END 2022-06-06 20:37 | disposition home or self-care (01) ==
PROVIDERS: Physician Assistant Medical; Emergency Provider Internal Medicine
DX: M79.7 Fibromyalgia (principal); M54.2 Cervicalgia; R51.9 Headache, unspecified; F41.1 Generalized anxiety disorder; F43.0 Acute stress reaction; M79.602 Pain in left arm; M79.601 Pain in right arm; Z20.822 Contact with and (suspected) exposure to COVID-19; Z79.899 Other long term (current) drug therapy
CPT/HCPCS: 0241U; 36415; 71046; 80053; 83690; 83735; 84484; 85025; 85610; 86308; 93005; 99283